=== PATIENT | female | born 1965 | race Caucasian/White ===

== ENCOUNTER 2019-08-29 09:38 | Inpatient (IN) | payer OTHER ==
[~2019-08-29] VITALS: Ht 162.6 cm; Wt 112.8 kg
[~2019-08-29 09:38] MED LIST: ACID1PAC PO; BUPR300T53 PO; CEFD300C3 PO; CHOL500050 PO; CITA10TA13 PO; IBUP-2076 PO; LISI1TAB32 PO; ONDA4TAB10 PO; RANI150T7 PO; TYL3 PO
[2019-08-29 11:03] LABS: BASOPHILS % (AUTO) 1.4 % (0.0-5.0); EOSINOPHILS % (AUTO) 4.9 % (0.0-8.0); HEMATOCRIT 36.5 % (36-48); LYMPHOCYTES % (AUTO) 19.8 % (21.0-51.0); MEAN CORPUSCULAR HEMOGLOBIN 30.4 pg (27.0-33.0); MEAN CORPUSCULAR HGB CONC 33.9 g/dL (32.0-36.0); MEAN CORPUSCULAR VOLUME 89.7 fL (79-99); MONOCYTES % (AUTO) 10.5 % (3.0-13.0); NEUTROPHILS % (AUTO) 63.4 % (40.0-77.0); PLATELET COUNT (AUTO) 351 K/uL (130-400); RED BLOOD CELL COUNT(AUTO) 4.07 MIL/uL (4.00-5.50); RED CELL DISTRIBUTION WIDTH 12.9 % (11.0-15.5); WHITE BLOOD COUNT (AUTO) 7.3 K/uL (4.8-10.8)
[2019-08-29 11:07] LABS: CREATININE 1.3 mg/dL (0.5-1.5); POTASSIUM 4.7 mmol/L (3.5-5.1)
[2019-08-29 11:39] LABS: INR 0.93 (0.85-1.15); PARTIAL THROMBOPLASTIN TIME 27.1 SEC (26.3-35.5); PROTHROMBIN TIME 9.8 SEC (9.6-11.6)
[2019-08-29] MEDS ORDERED: ACETAMINOPHEN-CODEINE 300/30MG TAB PO PRN (12:00)
[2019-08-29] MEDS ORDERED: LIDOCAINE 2%-EPI 1:200,000 20 ML VIAL IJ PRN (15:00)
[2019-08-29 15:25] VITALS: BP 129/74
[2019-08-29 20:00] VITALS: BP 117/66
[2019-08-29] MEDS: SULFAMETHOX-TMP DS 800/160 TAB PO SCH (20:42)
[2019-08-30] VITALS: BP 128/70
[2019-08-30 04:00] VITALS: BP 141/72
[2019-08-30] MEDS: SULFAMETHOX-TMP DS 800/160 TAB PO SCH ×2 (09:00→20:05)
[2019-08-30 09:02] VITALS: BP 121/81
[2019-08-30] MEDS ORDERED: FAMO40TA7 PO (09:23)
[2019-08-30] MEDS ORDERED: METF-444 PO (09:23)
[2019-08-30 11:00] VITALS: BP 151/84
--- NOTE | 2019-08-30 13:10 | NUR ---
D/C PLAN CM spoke to pt regarding d/c planning. Pt is ind. and lives alone. CM explained MD recommendations for home health and [facility] wound vac. Pt is agreeable to plan. CM obtained consent for [facility] to [facility] home health or any in network agency. Also obtained [facility] for [facility] wound vac. CM to fax referral to both entities and follow up. Addendum: 08/30/19 at 1312 by JEAN LUNDY CM Amended: Links added.
[2019-08-30 16:00] VITALS: BP 119/62
[2019-08-30 19:00] VITALS: BP 115/57
[2019-08-31] VITALS: BP 127/78
[2019-08-31 04:05] VITALS: BP 134/72
[2019-08-31 07:45] VITALS: BP 122/71
--- NOTE | 2019-08-31 09:40 | NUR ---
CM Note: [facility] pending approval CM spoke to Ari nolasco/AYALA LAINEZ, currently working on referral, pending Dr Recio to sign their order. Aware pt pending [facility] approval and delivery. Pt pending approval at this time. Primary nurse aware. CM to cont to follow up.
--- NOTE | 2019-08-31 09:43 | NUR ---
CM Note: [facility] pending approval and delivery CM called [facility], received clinicals. Pt pending approval and delivery at this time. Primary nurse aware. CM to cont to follow up.
[2019-08-31] MEDS: SULFAMETHOX-TMP DS 800/160 TAB PO SCH ×2 (09:48→22:07)
[2019-08-31 11:00] VITALS: BP 116/65
[2019-08-31 16:00] VITALS: BP 108/54
[2019-08-31 19:15] VITALS: BP 117/73
[2019-09-01] VITALS: BP 145/66
[2019-09-01 04:00] VITALS: BP 113/60
--- NOTE | 2019-09-01 07:36 | NUR ---
ALERT AND AWAKE, ON ROOM AIR WITH NO ACUTE DISTRESS; DENIES PAIN DURING ASSESSMENT. WOUND VAC IN PLACED AND WORKING. POC DISCUSSED WITH THE PATIENT AND SHE VERBALIZED UNDERSTANDING.
[2019-09-01 08:00] VITALS: BP 122/74
[2019-09-01] MEDS: SULFAMETHOX-TMP DS 800/160 TAB PO SCH (09:51)
[2019-09-01 12:00] VITALS: BP 124/75
[2019-09-01 16:00] VITALS: BP 116/61
--- NOTE | 2019-09-01 20:04 | NUR ---
WOUND VAC DRESSING CHANGE WAS PERFORMED AFTER EXPLAINING THE PROCEDURE TO THE PATIENT. WOUND BED WITH BEEFY RED TISSUE PRESENT, NO FOUL ODOR NOTED. PATIENT WAS REMOVED FROM THE HOSPITAL WOUND VAC AND WAS ATTACHED TO THE WOUND VAC THAT WAS DELIVERED TO THE PATIENT. HER IV ACCESS WAS REMOVED AND THE DISCHARGE INSTRUCTIONS WERE PROVIDED TO HER TO WHICH SHE VERBALIZED UNDERSTANDING. PATIENT REPORTED THAT SHE HAS AN APPOINTMENT WITH DR VIRGEN TOMORROW AND STILL HAVE HER ANTIBIOTIC AT HOME. I INSTRUCTED HER TO ASK DR VIRGEN FOR THE ANTIBIOTIC DURATION. PATIENT LEFT THE UNIT IN STABLE CONDITION ASSISTED TO THE LOBBY BY FLOOR PRODUCT ASSEMBLER TO THE ATTENTION OF HER FAMILY.
--- NOTE | 2019-09-01 20:31 | NUR ---
REPORT WAS CALLED TO [facility] NURSE JOSELUIS JOHNSTON RN AND NIGHT ACCOUNTS PAYABLE ADMINISTRATOR LOUISE WAS NOTIFIED OF THE WOUND VAC REMOVAL FOR NOTIFICATION PURPOSE.
== END 2019-09-01 19:53 | disposition home health service (06) | DRG 908 ==
LOC: EDH 09:38 → OBSVTOIN 10:25 → EDHIP 10:25 → 3AH 15:30
PROVIDERS: ADMIT Student in an Organized Health Care Education/Training Program; ATTEND Student in an Organized Health Care Education/Training Program
PROC: 0JD60ZZ Extraction of Chest Subcutaneous Tissue and Fascia, Open Approach (ICD-10-PCS; principal; 2019-08-29)
DX: L76.82 Other postprocedural complications of skin and subcutaneous tissue (principal); I96 Gangrene, not elsewhere classified; E89.0 Postprocedural hypothyroidism; Y83.8 Other surgical procedures as the cause of abnormal reaction of the patient, or of later complication, without mention of misadventure at the time of the procedure; Y92.89 Other specified places as the place of occurrence of the external cause; Z90.13 Acquired absence of bilateral breasts and nipples; Z85.3 Personal history of malignant neoplasm of breast; Z80.3 Family history of malignant neoplasm of breast; Z82.3 Family history of stroke; Z83.3 Family history of diabetes mellitus; Z82.49 Family history of ischemic heart disease and other diseases of the circulatory system
CPT/HCPCS: 36415; 80048; 85025; 85610; 85730; 97602; G0378

== ENCOUNTER 2022-11-12 06:33 | Observation (INO) | payer BC ==
[2022-11-09 09:14] LABS: BASOPHILS % (AUTO) 1.3 % (0.0-5.0); EOSINOPHILS % (AUTO) 1.5 % (0.0-8.0); LYMPHOCYTES % (AUTO) 27.5 % (21.0-51.0); MEAN CORPUSCULAR HEMOGLOBIN 31.4 pg (27.0-33.0); MEAN CORPUSCULAR HGB CONC 32.4 g/dL (32.0-36.0); MEAN CORPUSCULAR VOLUME 96.8 fL (79-99); MONOCYTES % (AUTO) 7.5 % (3.0-13.0); PLATELET COUNT (AUTO) 232 K/uL (130-400); RED BLOOD CELL COUNT(AUTO) 4.65 MIL/uL (4.00-5.50); RED CELL DISTRIBUTION WIDTH 12.5 % (11.0-15.5); WHITE BLOOD COUNT (AUTO) 5.3 K/uL (4.8-10.8)
[2022-11-09 09:28] LABS: ALBUMIN 4.3 g/dL (3.5-5.0); CREATININE 0.9 mg/dL (0.5-1.5); CRP QUANTITATIVE 3.5 mg/L (0.00-9.0)
[2022-11-09 09:29] LABS: INR 0.96 (0.85-1.15); PROTHROMBIN TIME 10.5 SEC (9.6-11.6)
[2022-11-09 09:31] LABS: PARTIAL THROMBOPLASTIN TIME 28.4 SEC (26.3-35.5)
[2022-11-09 09:41] LABS: APPEARANCE,URINE CLEAR (CLEAR); BILIRUBIN,URINE NEGATIVE (NEGATIVE); COLOR,URINE COLORLESS (YELLOW); GLUCOSE, URINE (UA) NEGATIVE (NEGATIVE); KETONES,URINE NEGATIVE (NEGATIVE); LEUKOCYTE ESTERASE ,URINE NEGATIVE Leu/uL (NEGATIVE); NITRATE,URINE NEGATIVE (NEGATIVE); OCCULT BLOOD,URINE NEGATIVE (NEGATIVE); PROTEIN,URINE NEGATIVE (NEGATIVE); UROBILINOGEN,URINE 0.2 mg/dL (0.2-1.0)
[2022-11-09 10:33] VITALS: BP 127/64
[~2022-11-12] VITALS: Ht 162.6 cm; Wt 111.4 kg
[2022-11-12] VITALS (25 sets, daily range): BP systolic 143–178; BP diastolic 63–104
[2022-11-12] MEDS: CEFAZOLIN SODIUM 2 GM VIAL IVPB SCH ×2 (06:00→10:40)
[~2022-11-12 06:33] MED LIST changes: +ACET-2743 PO; -ACID1PAC PO; -BUPR300T53 PO; -CEFD300C3 PO; -CITA10TA13 PO; +FAMO-290 PO; -IBUP-2076 PO; +IBUP-2784 PO; -LISI1TAB32 PO; +LISI1TAB49 PO; +MULT-1367 PO; -ONDA4TAB10 PO; -RANI150T7 PO; -TYL3 PO
[2022-11-12] MEDS ORDERED: LACTATED RINGERS 1000ML 1,000 ML IV ONE (07:08)
[2022-11-12] MEDS ORDERED: BUPIVACAINE/PF 0.5% 30ML VIAL ONE (07:55)
[2022-11-12] MEDS ORDERED: KETOROLAC 30MG VIAL (30MG/ML) ONE (07:55)
[2022-11-12] MEDS ORDERED: TRANEXAMIC ACID 1000MG/10ML ONE ×2 (08:01→12:07)
[2022-11-12] MEDS ORDERED: LIDOCAINE HCL-MPF 2% 10ML AMP IJ ONE (10:16)
[2022-11-12] MEDS ORDERED: MIDAZOLAM HCL 1 MG/ML 2ML VIAL ONE (10:17)
[2022-11-12] MEDS ORDERED: ROCURONIUM 10MG/1ML SYR 10 MG/ML ML ONE (10:17)
[2022-11-12] MEDS ORDERED: PROPOFOL 10 MG/ML 20ML VIAL IV ONE (10:17)
[2022-11-12] MEDS ORDERED: FENTANYL CITRATE PF 50 MCG/1 ML 2ML VIAL ONE ×2 (10:17→11:19)
[2022-11-12] MEDS ORDERED: ROPIVACAINE 0.5% 5MG/ML 30ML IJ ONE (10:26)
[2022-11-12] MEDS ORDERED: GLYCOPYRROLATE 1 MG/5 ML SYRINGE ONE ×2 (10:49→13:41)
[2022-11-12] MEDS ORDERED: LABETALOL 20MG VIAL IV ONE (11:36)
[2022-11-12] MEDS ORDERED: NEOSTIGMINE 5MG/5ML SYR IV ONE (11:46)
[2022-11-12] MEDS ORDERED: TRANEXAMIC ACID 1000MG/10ML IV ONE (12:40)
[2022-11-12] MEDS ORDERED: CYCLOBENZAPRINE HCL 10 MG TABLET PO PRN (13:00)
[2022-11-12] MEDS ORDERED: TRAMADOL HCL 50 MG TABLET PO PRN (13:00)
[2022-11-12] MEDS ORDERED: KETOROLAC 15MG/ML VIAL (15MG/ML) IV PRN (13:00)
[2022-11-12] MEDS ORDERED: ONDANSETRON 4MG INJ IVP PRN (13:00)
[2022-11-12] MEDS ORDERED: POTASSIUM CHLORIDE 10% ELIXIR 20 MEQ/15 ML UDCUP PO PRN (13:00)
[2022-11-12] MEDS ORDERED: LIDOCAINE HCL-MPF 1% 2ML VIAL IV PRN (13:00)
[2022-11-12] MEDS ORDERED: HYDROCODONE/ACETAMINOPHEN 5/325 MG TAB PO PRN ×2 (13:00)
[2022-11-12] MEDS: KETOROLAC 15MG/ML VIAL (15MG/ML) IV SCH ×2 (13:00→18:17)
[2022-11-12] MEDS ORDERED: 0.9%NACL 1000ML 1,000 ML IV SCH (13:00)
[2022-11-12] MEDS ORDERED: FERROUS FUMARATE 324 MG TABLET PO PRN (13:00)
[2022-11-12] MEDS ORDERED: POTASSIUM CHLORIDE 20MEQ/100ML 100 ML IV PRN (13:00)
[2022-11-12] MEDS ORDERED: DiphenhydrAMINE HCL 50 MG/ML VIAL IVP PRN (13:00)
[2022-11-12] MEDS ORDERED: HYDROMORPHONE 1 MG INJ ONE ×2 (13:02→13:22)
[2022-11-12] MEDS ORDERED: MEPERIDINE-PF 25 MG/ML SYG ONE (13:22)
[2022-11-12] MEDS ORDERED: IBUPROFEN 200 MG TAB PO PRN (16:00)
[2022-11-12] MEDS ORDERED: ACETAMINOPHEN 500 MG TABLET PO PRN (16:00)
[2022-11-12] MEDS: GABAPENTIN 100 MG CAPSULE PO SCH ×3 (16:16→20:27)
[2022-11-12] MEDS: CEFAZOLIN SODIUM 1 GM VIAL IVP SCH (17:24)
[2022-11-12] MEDS ORDERED: HYDROCHLOROTHIAZIDE 25 MG TABLET PO SCH (21:00)
[2022-11-12] MEDS ORDERED: LISINOPRIL 10 MG TABLET PO SCH (21:00)
[2022-11-12] MEDS ORDERED: FAMOTIDINE 20MG TAB PO SCH (21:00)
[2022-11-12] MEDS ORDERED: **HM**(Cholecalciferol (Vitamin D3) (Vitamin D) 50,000 UNIT PO SCH (21:00)
[2022-11-12] MEDS ORDERED: MULTIVITAMIN TABLET PO SCH (21:00)
[2022-11-13] VITALS: BP 147/86
[2022-11-13] MEDS: CEFAZOLIN SODIUM 1 GM VIAL IVP SCH (01:29)
[2022-11-13 04:08] LABS: HEMATOCRIT 33.1 % (36-48); MEAN CORPUSCULAR HEMOGLOBIN 31.1 pg (27.0-33.0); MEAN CORPUSCULAR HGB CONC 33.2 g/dL (32.0-36.0); MEAN CORPUSCULAR VOLUME 93.5 fL (79-99); RED BLOOD CELL COUNT(AUTO) 3.54 MIL/uL (4.00-5.50); RED CELL DISTRIBUTION WIDTH 12.2 % (11.0-15.5); WHITE BLOOD COUNT (AUTO) 10.5 K/uL (4.8-10.8)
[2022-11-13 04:14] VITALS: BP 120/53
[2022-11-13 04:18] LABS: CREATININE 0.9 mg/dL (0.5-1.5); POTASSIUM 3.8 mmol/L (3.5-5.1)
[2022-11-13] MEDS: CALCIUM CARB 500MG PO PRN ×2 (04:35→18:02)
[2022-11-13] MEDS: KCL 20 MEQ ERTAB PO PRN ×2 (04:36→18:10)
[2022-11-13] MEDS: KETOROLAC 15MG/ML VIAL (15MG/ML) IV SCH (04:38)
[2022-11-13 08:00] VITALS: BP 146/81
[2022-11-13] MEDS ORDERED: POLYETHYLENE GLYCOL 3350 17 GM POWD.PACK PO SCH (09:00)
[2022-11-13] MEDS ORDERED: ASPIRIN 325MG TAB PO SCH (09:00)
[2022-11-13] MEDS: GABAPENTIN 100 MG CAPSULE PO SCH ×2 (09:22→14:20)
[2022-11-13 11:00] VITALS: BP 160/76
[2022-11-13 16:00] VITALS: BP 164/88
[2022-11-13] MEDS ORDERED: DOCU-116 PO (17:46)
[2022-11-13] MEDS ORDERED: CYCL-309 PO (17:46)
[2022-11-13] MEDS ORDERED: GABA100C PO (17:46)
[2022-11-13] MEDS ORDERED: ASPI-1026 PO (17:46)
[2022-11-13] MEDS ORDERED: HYDR-4060 PO (17:46)
[2022-11-15] MEDS ORDERED: BISACODYL 10 MG SUPP.RECT RC PRN (13:00)
== END 2022-11-13 18:11 | disposition home health service (06) ==
LOC: DAH 06:33 → DAHIP 06:34 → 4CH 15:12 → 4DH 19:18
PROVIDERS: ADMIT Student in an Organized Health Care Education/Training Program; ATTEND Student in an Organized Health Care Education/Training Program
DX: M17.12 Unilateral primary osteoarthritis, left knee (principal); Z20.822 Contact with and (suspected) exposure to COVID-19; D62 Acute posthemorrhagic anemia; I10 Essential (primary) hypertension; Z85.3 Personal history of malignant neoplasm of breast; Z90.710 Acquired absence of both cervix and uterus; Z79.899 Other long term (current) drug therapy
CPT/HCPCS: 82040; 80048 ×2; 84703; 85025; 85610; 85730; 87088; 84134; 86140; 87426; 81003; 36415 ×2; 87641; 27447; 96374; 96375; 73560; 97161; 97530 ×3; 96376; 85027; 97039 ×2; 97116 ×2; G0378 ×27; A4663; J7030; A4215 ×2; J7120; J3010 ×2; J0690 ×3; J1170 ×2; J3490 ×8; J2710; J2250; J2704; J2405; J1885 ×3; J2795; C1713; G0168; C1776 ×2; A4649 ×4; A6255; A5120; A4223; A4222; A4221; J2175

== ENCOUNTER 2024-09-09 23:53 | Emergency (ER) | payer BC ==
[~2024-09-09] VITALS: Ht 162.6 cm; Wt 120.7 kg
[~2024-09-09 23:53] MED LIST changes: -ACET-2743 PO; +ASPI-1026 PO; +CYCL-309 PO; +DOCU-116 PO; +GABA100C PO; +HYDR-4060 PO; -IBUP-2784 PO
[2024-09-09 23:56] VITALS: BP 192/76; PULSE 66; RESP 20; TEMP 98.3
[2024-09-10 00:32] LABS: APPEARANCE,URINE CLEAR (CLEAR); BILIRUBIN,URINE NEGATIVE (NEGATIVE); COLOR,URINE LIGHT-YELLOW (YELLOW); GLUCOSE, URINE (UA) NEGATIVE (NEGATIVE); KETONES,URINE NEGATIVE (NEGATIVE); LEUKOCYTE ESTERASE ,URINE NEGATIVE Leu/uL (NEGATIVE); NITRATE,URINE NEGATIVE (NEGATIVE); OCCULT BLOOD,URINE NEGATIVE (NEGATIVE); PROTEIN,URINE NEGATIVE (NEGATIVE); UROBILINOGEN,URINE 0.2 mg/dL (0.2-1.0)
[2024-09-10 00:41] LABS: ADD UA MICROSCOPIC NO
[2024-09-10] MEDS: TRIAMCINOLONE ACETONIDE 40 MG/ML 1ML VIAL IM ONE (01:11)
[2024-09-10] MEDS: ORPHENADRINE 60MG/2ML IM ONE (01:12)
[2024-09-10] MEDS: HYDROcodone/APAP 5/325 1 TAB TABLET PO ONE (03:03)
[2024-09-10] MEDS ORDERED: CYCL10TA16 PO (03:03)
[2024-09-10] MEDS ORDERED: IBUP-2070 PO (03:03)
== END 2024-09-10 03:37 | disposition home or self-care (01) ==
LOC: EDH 23:53
DX: S39.012A Strain of muscle, fascia and tendon of lower back, initial encounter (principal); M62.838 Other muscle spasm; I10 Essential (primary) hypertension; Z79.82 Long term (current) use of aspirin; Z79.899 Other long term (current) drug therapy; Z90.49 Acquired absence of other specified parts of digestive tract; Z90.710 Acquired absence of both cervix and uterus; X58.XXXA Exposure to other specified factors, initial encounter; Y93.89 Activity, other specified; Y92.89 Other specified places as the place of occurrence of the external cause; Y99.8 Other external cause status
CPT/HCPCS: 99284; 81003; 72100; 96372 ×2; J3301; J2360